=== PATIENT | female | born 1990 | race Hispanic/Latino ===

== ENCOUNTER 2018-10-09 14:02 | Emergency (ER) | payer OTHER ==
--- OUTSIDE RECORDS SUMMARY | 2018-10-09 14:05 | XMS REPORT ---
:1990 [facility] Address [address] [place] [address] Dr. Charlton [address] [place] [id number] Care Team Providers Name Role Phone Unavailable Unavailable Unavailable Problems This patient has no known problems. Allergies, Adverse Reactions, Alerts This patient has no known allergies or adverse reactions. Medications This patient has no known medications.
[2018-10-09 14:58] LABS: Absolute Lymphocytes (CBC) 1.7 K/uL (0.7-4.9); Basophils % 0.3 % (0-1.3); Eosinophils % 1.3 % (0-4.4); Hematocrit 39.2 % (36.0-45.0); Lymphocytes % 22.6 % (15.3-44.8); MPV 8.7 fL (7.6-11.3); Monocytes % 6.1 % (3.3-12.3)
[2018-10-09 15:35] LABS: BUN Blood Urea Nitrogen 9 mg/dL (7-18); Bicarbonate 28 mmol/L (21-32); Glucose Level 117 mg/dL (74-106); HCG, Quantitative 14966 mIU/mL (1-3); Potassium 3.5 mmol/L (3.5-5.1); Sodium Level 139 mmol/L (136-145)
[2018-10-09 15:40] LABS: Urine Blood 2+ (NEG); Urine Glucose NEGATIVE (NEG); Urine Protein NEGATIVE (NEG); Urine Specific Gravity >1.030 (1.005-1.030); Urine pH 5.5 (5.0-7.0)
--- NOTE | 2018-10-09 17:37 | EDPHYS ---
Physician Documentation [facility] Name: Viviane Trinh Age: 27 yrs Sex: Female : 1990 Arrival Date: 10/09/2018 Time: 14:05 Bed 14 Private MD: ED Physician Willie Lomas HPI: 10/09 16:59 This 27 yrs old Female presents to ER via Ambulatory with complaints of jr8 Vaginal Bleeding, + Preg <12wks. 16:59 The patient presents to the emergency department with vaginal bleeding, that is light, jr8 spotting x 5 days with passage of clot today. The estimated gestational age is 10 weeks. course: care: private OB physician, Dr. Velásquez, Ultrasound: the patient had an ultrasound, which was normal. Previous pregnancies: the patient has never been . Associated signs and symptoms: Pertinent positives: cramping. The patient has not experienced similar symptoms in the past. The patient has not recently seen a physician. 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 - Social history:: Smoking status: Patient/guardian denies using tobacco. - Ebola Screening: : No symptoms or risks identified at this time. ROS: 16:59 Constitutional: Negative for fever, chills, and weight loss, Eyes: Negative for injury, jr8 pain, redness, and discharge, ENT: Negative for injury, pain, and discharge, Neck: Negative for injury, pain, and swelling, Cardiovascular: Negative for chest pain, palpitations, and edema, Respiratory: Negative for shortness of breath, cough, wheezing, and pleuritic chest pain, Back: Negative for injury and pain, MS/Extremity: Negative for injury and deformity, Skin: Negative for injury, rash, and discoloration, Neuro: Negative for headache, weakness, numbness, tingling, and seizure. 16:59 Abdomen/GI: Positive for abdominal cramps, Negative for nausea, vomiting, and diarrhea, constipation, rectal pain, rectal bleeding. 16:59 : Positive for vaginal bleeding, Negative for urinary symptoms, vaginal discharge. Exam: 16:59 Constitutional: This is a well developed, well nourished patient who is awake, alert, jr8 and in no acute distress. Head/Face: Normocephalic, atraumatic. Eyes: Pupils equal round and reactive to light, extra-ocular motions intact. Lids and lashes normal. Conjunctiva and sclera are non-icteric and not injected. Cornea within normal limits. Periorbital areas with no swelling, redness, or edema. ENT: Nares patent. No nasal discharge, no septal abnormalities noted. Tympanic membranes are normal and external auditory canals are clear. Oropharynx with no redness, swelling, or masses, exudates, or evidence of obstruction, uvula midline. Mucous membranes moist. Neck: Trachea midline, no thyromegaly or masses palpated, and no cervical lymphadenopathy. Supple, full range of motion without nuchal rigidity, or vertebral point tenderness. No Meningismus. Chest/axilla: Normal chest wall appearance and motion. Nontender with no deformity. No lesions are appreciated. Cardiovascular: Regular rate and rhythm with a normal S1 and S2. No gallops, murmurs, or rubs. Normal PMI, no JVD. No pulse deficits. Respiratory: Lungs have equal breath sounds bilaterally, clear to auscultation and percussion. No rales, rhonchi or wheezes noted. No increased work of breathing, no retractions or nasal flaring. Abdomen/GI: Soft, non-tender, with normal bowel sounds. No distension or tympany. No guarding or rebound. No evidence of tenderness throughout. Back: No spinal tenderness. No costovertebral tenderness. Full range of motion. Skin: Warm, dry with normal turgor. Normal color with no rashes, no lesions, and no evidence of cellulitis. MS/ Extremity: Pulses equal, no cyanosis. Neurovascular intact. Full, normal range of motion. Neuro: Awake and alert, GCS 15, oriented to person, place, time, and situation. Cranial nerves II-XII grossly intact. Motor strength 5/5 in all extremities. Sensory grossly intact. Cerebellar exam normal. Normal gait. Vital Signs: 14:09 BP 134 / 79; Pulse 87; Resp 16 S; Temp 98.1(TE); Pulse Ox 100% on R/A; Weight 60.78 kg aa5 (R); Height 5 ft. 4 in. (162.56 cm) (R); Pain 2/10; 15:21 BP 119 / 74; Pulse 85; Resp 18; Pulse Ox 100% on R/A; hj 16:21 BP 118 / 69; Pulse 78; Resp 18; Pulse Ox 100% on R/A; hj 17:27 BP 115 / 70; Pulse 75; Resp 18; Pulse Ox 100% on R/A; hj 14:09 Body Mass Index 23.00 (60.78 kg, 162.56 cm) aa5 MDM: 14:13 Patient medically screened. jr8 17:17 Data reviewed: vital signs, nurses notes, lab test result(s), radiologic studies, jr8 ultrasound. Data interpreted: Pulse oximetry: on room air is 100 %. Interpretation: normal. Counseling: I had a detailed discussion with the patient and/or guardian regarding: the historical points, exam findings, and any diagnostic results supporting the discharge/admit diagnosis, lab results, radiology results, the need for outpatient follow up, an OB/Gyne specialist, to return to the emergency department if symptoms worsen or persist or if there are any questions or concerns that arise at home. ED course: Discussed with patient that her estimated due date is set at 10 weeks but we are reading on US 5 weeks 6 days. This raises concern for demise. Needs to see OB on Sunday since tomorrow is holiday. If worse to come back in meantime. Patient good with this . 10/09 14:34 Order name: Quantitative Hcg; Complete Time: 16:10/09 14:34 Order name: Abo/rh Typing; Complete Time: 16:10/09 14:34 Order name: Basic Metabolic Panel; Complete Time: 16:10/09 14:34 Order name: CBC with Diff; Complete Time: 16:10/09 14:55 Order name: Urine Dipstick--Ancillary (enter results) ms 10/09 14:55 Order name: Urine --Ancillary (enter results) ms 10/09 14:34 Order name: Urine Test (obtain specimen); Complete Time: 14:54 10/09 14:34 Order name: IV Saline Lock; Complete Time: 14:54 10/09 14:34 Order name: Labs collected and sent; Complete Time: 14:54 10/09 14:34 Order name: NPO; Complete Time: 14:34 10/09 14:34 Order name: Urine Dipstick-Ancillary (obtain specimen); Complete Time: 14:54 10/09 14:59 Order name: US Transvaginal Ob jr8 Administered Medications: No medications were administered Point of Care Testing: Urine : 14:09 hCG Reading: Positive; hj Disposition: 18:29 Co-signature as Attending Physician, Willie Lomas MD. rn Disposition: 10/09/18 17:36 Discharged to Home. Impression: Threatened . - Condition is Stable. - Discharge Instructions: Threatened Miscarriage, Vaginal Bleeding During , First Trimester, Pelvic Rest. - Medication Reconciliation Form, Thank You Letter, Antibiotic Education, Prescription Opioid Use form. - Follow up: Private Physician; When: 48 Hours; Reason: Recheck today's complaints, Continuance of care, Re-evaluation by your physician. - Problem is new. - Symptoms have improved. Signatures: Dispatcher [employer] EDMS Willie Lomas MD MD rn Calderon, Audri, RN RN aa5 Eduardo Ferreira PA PA jr8 Adonis Cedillo RN RN hj Corrections: (The following items were deleted from the chart) 17:53 17:36 10/09/2018 17:36 Discharged to Home. Impression: Threatened . Condition hj is Stable. Forms are Medication Reconciliation Form, Thank You Letter, Antibiotic Education, Prescription Opioid Use. Follow up: Private Physician; When: 48 Hours; Reason: Recheck today's complaints, Continuance of care, Re-evaluation by your physician. Problem is new. Symptoms have improved. jr8
--- NOTE | 2018-10-09 17:37 | ER ---
Nurse's Notes [facility] Name: Viviane Trinh Age: 27 yrs Sex: Female : 1990 Arrival Date: 10/09/2018 Time: 14:05 Bed 14 Private MD: Diagnosis: Threatened Presentation: 10/09 14:08 Presenting complaint: Patient states: "I am about 10 weeks and I noticed a aa5 blood clot and spotting when I went to the restroom about 30 minutes ago". pt reports lower abd cramping. Transition of care: patient was not received from another setting of care. Onset of symptoms was October 2018. Risk Assessment: Do you want to hurt yourself or someone else? Patient reports no desire to harm self or others. Initial Sepsis Screen: Does the patient meet any 2 criteria? No. Patient's initial sepsis screen is negative. Does the patient have a suspected source of infection? No. Patient's initial sepsis screen is negative. Care prior to arrival: None. 14:08 Acuity: DONN 3 aa5 14:08 Method Of Arrival: Ambulatory aa5 Triage Assessment: 14:24 General: Appears in no apparent distress. uncomfortable, Behavior is calm, cooperative, hj appropriate for age. Pain: Complains of pain in abdomen. : Reports vaginal bleeding that is with clots. 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 - Social history:: Smoking status: Patient/guardian denies using tobacco. - Ebola Screening: : No symptoms or risks identified at this time. Screenin:24 Abuse screen: Denies threats or abuse. Denies injuries from another. Nutritional hj screening: No deficits noted. Tuberculosis screening: No symptoms or risk factors identified. Fall Risk None identified. Assessment: 14:46 General: Appears in no apparent distress. uncomfortable, Behavior is calm, cooperative, hj appropriate for age. Pain: Complains of pain in abdomen. Neuro: Level of Consciousness is awake, alert, obeys commands, Oriented to person, place, time, situation, Appropriate for age. Cardiovascular: Capillary refill < 3 seconds Patient's skin is warm and dry. Respiratory: Airway is patent Respiratory effort is even, unlabored, Respiratory pattern is regular, symmetrical. GI: Reports lower abdominal pain, cramping, nausea. : Reports vaginal bleeding that is with clots, light flow. EENT: No signs and/or symptoms were reported regarding the EENT system. Derm: No signs and/or symptoms reported regarding the dermatologic system. 17:52 Obstetrical Assessment: per US results; not available. 17:52 Reassessment: for D/C; instructions given;. Vital Signs: 14:09 BP 134 / 79; Pulse 87; Resp 16 S; Temp 98.1(TE); Pulse Ox 100% on R/A; Weight 60.78 kg aa5 (R); Height 5 ft. 4 in. (162.56 cm) (R); Pain 2/10; 15:21 BP 119 / 74; Pulse 85; Resp 18; Pulse Ox 100% on R/A; hj 16:21 BP 118 / 69; Pulse 78; Resp 18; Pulse Ox 100% on R/A; hj 17:27 BP 115 / 70; Pulse 75; Resp 18; Pulse Ox 100% on R/A; hj 14:09 Body Mass Index 23.00 (60.78 kg, 162.56 cm) [facility] Vitals: 17:51 Heart Tones per US result; not available . ED Course: 14:05 Patient arrived in ED. aa5 14:05 Arm band placed on. aa5 14:09 Triage completed. aa5 14:13 Eduardo Ferreira PA is PHCP. jr8 14:13 Willie Lomas MD is Attending Physician. jr8 14:14 Adonis Cedillo, BILLIE is Primary Nurse. 14:24 Patient has correct armband on for positive identification. Placed in gown. Bed in low hj position. Call light in reach. Side rails up X 1. 14:40 Initial lab(s) drawn, by me, sent to lab. Inserted saline lock: 22 gauge in left hj antecubital area, using aseptic technique. Blood collected. 15:10 Radiology exam delayed due to lab results not completed at this time. (HCG). aa4 16:37 US Transvaginal Ob In Process Unspecified. EDMS 16:39 Repeat lab(s) drawn. by me, sent to lab. jp3 17:51 No provider procedures requiring assistance completed. IV discontinued, intact, hj bleeding controlled, No redness/swelling at site. Pressure dressing applied. Administered Medications: No medications were administered Point of Care Testing: Urine : 14:09 hCG Reading: Positive; hj Outcome: 17:36 Discharge ordered by . anni 17:51 Discharged to home ambulatory, with family. 17:51 Condition: stable 17:51 Discharge instructions given to patient, family, Instructed on discharge instructions, follow up and referral plans. Demonstrated understanding of instructions, follow-up care. 17:53 Patient left the ED. Signatures: Dispatcher [employer] EDGA Sharon Chan aa4 Sheri Mckeon RN RN aa5 Eduardo Ferreira PA PA jr8 Adonis Cedillo, RN RN Ryne Ca jp3 Corrections: (The following items were deleted from the chart) 16:24 16:21 BP 91 / 61; Pulse 65bpm; Resp 18bpm; Pulse Ox 100% RA; hj hj
--- NOTE | 2018-10-09 18:42 | RAD REPORT ---
EXAM DESCRIPTION: US - Transvaginal OB - 10/09/2018 4:40 pm CLINICAL HISTORY: Abd cramping, ;Vaginal bleeding COMPARISON: <Comparisons> FINDINGS: A single gestational sac is seen within the uterus. The shape of the sac is within normal limits for gestational age. Within the sac is a single pole with crown-rump length of 3 mm, cor relating to estimated gestational age of 5 weeks 6 days. Estimated date of delivery is 06/05/2019. Heart rate is 91 BPM. The placenta is not yet developed due to early gestational age. The maternal adnexa and ovaries are within normal limits. Normal Doppler blood flow was demonstrated to both ovaries. IMPRESSION: Single live early intrauterine gestation with estimated gestational age of 5 weeks 6 day s, SAW 06/05/2019. No unusual or unexpected finding.
== END 2018-10-09 17:53 | disposition home or self-care (01) ==
LOC: ER 14:02
DX: O20.0 Threatened abortion (principal); Z3A.01 Less than 8 weeks gestation of pregnancy
CPT/HCPCS: 36415; 76817; 80048; 81003; 81025; 84702; 85025; 86900; 86901; 99284

== ENCOUNTER 2020-05-05 14:00 | Emergency (ER) | payer OTHER ==
--- OUTSIDE RECORDS SUMMARY | 2020-05-05 14:39 | XMS REPORT | Continuity of Care Document ---
:1990 Author Organization [facility] t Address [address] [place] [address] Care Team Providers Name Role Phone Shannan Velásquez MD Attending Clinician Jordon Torres Attending Clinician Doctor Unassigned, Name Attending Clinician Unavailable Problems This patient has no known problems. Allergies, Adverse Reactions, Alerts This patient has no known allergies or adverse reactions. Medications This patient has no known medications. Procedures This patient has no known procedures. Encounters Start End Encounter Admission Attending Care Care Encounter Source Date/Time Date/Time Type Type Clinicians Facility Department ID 2020-05-03 2020-05-03 Telephone Shannan Velásquez [id number] 00:00:00 00:00:00 Brendan [place] [id number] [place] [id number] [id number] [address] 2020-04-28 2020-04-28 Telephone KERI Chinchilla [id number] 00:00:00 00:00:00 Diana Ruvalcaba [employer] W[employer] FENCE ERECTOR [id number] [facility] [id number] MATERNAL [id number] & CHILD [address] [place] [address] 2020-04-27 2020-04-27 Orders Doctor ALEJANDRO [id number] 00:00:00 00:00:00 Only SUZY Jane [id number] [place] [facility] [id number] Results This patient has no known results.
--- OUTSIDE RECORDS SUMMARY | 2020-05-05 14:39 | XMS REPORT | Summary of Care ---
:1990 Author Organization [facility] Address [address] [place] [address] Care Team Providers Name Role Phone Sana Crawford Primary Care Provider Reason for Visit Reason Comments Initial Visit Encounter Details Date Type Department Care Team Description 04/27/2020 Initial [facility] [place], Super vision of high Visit [place] Diana Ruvalcaba SANDOVAL risk , [address]um ([address]) [place], [place] [address] [place], [place] [phone] [id number] Allergies No Known Allergiesdocumented as of this encounter (statuses as of 04/27/2020) Medications Medication Sig Dispensed Refills Start Date End Date Status norgestimate-ethinyl Take 1 tablet by 1 Package 11 11/07/2018 Active estradiol 0.25-35 mouth daily. mg-mcg per tabletIndications: Encounter for BCP ( control pills) initial prescription cephALEXin 500 mg TAKE 1 CAPSULE BY 0 12/04/2019 Active capsule MOUTH EVERY 12 HOURS FOR 5 DAYS documented as of this encounter (statuses as of 04/27/2020) Active Problems Problem Noted Date History of miscarriage 04/27/2020 Supervision of high-risk 04/27/2020 Estimated Date of Delivery Comments Yes 01/03/2021 Based on last menstr ual period of 03/29/2020 (Approximate) documented as of this encounter (statuses as of 04/27/2020) Resolved Problems Problem Noted Date Resolved Date Rhinitis medicamentosa 12/29/2016 12/30/2019 Nonintractable episodic headache, unspecified headache type 12/29/2016 12/30/2019 Well woman exam with routine gynecological exam 08/30/2016 12/30/2019 documented as of this encounter (statuses as of 04/27/2020) Social History Tobacco Use Types Packs/Day Years Used Date Never Smoker Smokeless Tobacco: Never Used Alcohol Use Drinks/Week oz/Week Comments Not Currently social Estimated Date of Delivery Comments Yes 01/03/2021 Based on last menstr ual period of 03/29/2020 (Approximate) Sex Assigned at Date Recorded Not on file COVID-19 Exposure Response Date Recorded In the last month, have you been in contact with No / Unsure 04/27/2020 2:48 PM CAMERA REPAIR TECHNICIAN someone who was confirmed or suspected to have Coronavirus / COVID-19? documented as of this encounter Last Filed Vital Signs Vital Sign Reading Time Taken Comments Blood Pressure 127/85 04/27/2020 2:49 PM CAMERA REPAIR TECHNICIAN Pulse 88 04/27/2020 2:49 PM CAMERA REPAIR TECHNICIAN Temperature 36.8 C (98.3 F) 04/27/2020 2:49 PM CAMERA REPAIR TECHNICIAN Respiratory Rate 16 04/27/2020 2:49 PM CAMERA REPAIR TECHNICIAN Oxygen Saturation - - Inhaled Oxygen Concentration - - Weight 64 kg (141 lb 3 oz) 04/27/2020 2:49 PM CAMERA REPAIR TECHNICIAN Height 162.6 cm (5' 4") 04/27/2020 2:49 PM CAMERA REPAIR TECHNICIAN Body Mass Index 24.23 04/27/2020 2:49 PM CAMERA REPAIR TECHNICIAN documented in this encounter Progress Notes Diana Chinchilla, WHCNP - 04/27/2020 2:30 PM CST Chief complaint: Chief Complaint Patient presents with Initial Visit HPI CC: Initial Visit Viviane Trinh is a 29 year old, , /White female. Patient's last menstrual period was03/29/2020 (approximate). She is 4w1d with an suspected IUP. Her Estimated Date of Delivery: 01/03/21. She is being seen today for her first obstetrical visit. She has no complaints today. OB History Para Term AB Living 2 0 0 0 1 0 SAB TAB Ectopic Multiple Live Births 1 0 0 0 # Outcome Date GA Lbr John/2nd Weight Sex Delivery Anes PTL Lv 2 Current 1 SAB 10/14/18 Histories OB History Para Term AB Living 2 0 0 0 1 0 SAB TAB Ectopic Multiple Live Births 1 0 0 0 # Outcome Date GA Lbr John/2nd Weight Sex Delivery Anes PTL Lv 2 Current 1 SAB 10/14/18 Past Medical History: Diagnosis Date Nonintractable episodic headache, unspecified headache type 12/29/2016 Osteoarthritis Osteoarthritis 2017 Family History Problem Relation Age of Onset Hypertension Mother Heart Father High cholesterol Father Hypertension Father Diabetes Father Arthritis Maternal Aunt Depression Maternal Aunt Diabetes Maternal Aunt Asthma NoFHx defects NoFHx Genetic NoFHx Breast Cancer NoFHx Colon Cancer NoFHx Ovarian Cancer NoFHx Uterine Cancer NoFHx Cancer NoFHx Psychiatry NoFHx Mental retardation NoFHx Neurological NoFHx Osteoporosis NoFHx Family Status Relation Name Status Mo Alive Fa Alive MAunt (Not Specified) NoFHx (Not Specified) Past Surgical History: Procedure Laterality Date LASIK (LASER IN SITU KERATOMILEUSIS) TOOTH EXTRACTION 2013 Social History Socioeconomic History Marital status: Single Spouse name: Not on file Number of children: Not on file Years of education: Not on file Highest education level: Not on file Occupational History Not on file Social Needs Financial resource strain: Not on file Food insecurity Worry: Not on file Inability: Not on file Transportation needs Medical: Not on file Non-medical: Not on file Tobacco Use Smoking status: Never Smoker Smokeless tobacco: Never Used Substance and Sexual Activity Alcohol use: Not Currently Comment: social Drug use: No Sexual activity: Yes Partners: Male control/protection: None Comment: Last intercourse: 04/20/2020 Lifestyle Physical activity Days per week: Not on file Minutes per session: Not on file Stress: Not on file Relationships Social connections Talks on phone: Not on file Gets together: Not on file Attends taoism service: Not on file Active member of club or organization: Not on file Attends meetings of clubs or organizations: Not on file Relationship status: Not on file Intimate partner violence Fear of current or ex partner: Not on file Emotionally abused: Not on file Physically abused: Not on file Forced sexual activity: Not on file Other Topics Concern Not on file Social History Narrative Denies domestic violence or abuse. Lives in house with mom. No pets. Social History Substance and Sexual Activity Sexual Activity Yes Partners: Male control/protection: None Comment: Last intercourse: 04/20/2020 Genetic Screen Autism / Mental Retardation: No Елена Disease: No Congenital Heart Defect: No Cystic Fibrosis: No Down Syndrome: No Familial Dysautonomia: No Hemophilia or other Blood Disorders: No Munday Chorea: No Maternal Metabolic Disorder--specify (eg. Type 1 Diabetes, PKU): No Muscular Dystrophy: No Neural Tube Defect: No Recurrent Loss or a Stillbirth: No Sickle Cell Disease or Trait: No Azeem Sachs: No Teratological Substances (specify type & strength/dose) since LMP: No Thalassemia: No Other Inherited Genetic or Chromosomal Disorder (specify): No No Significant History of Genetic Disorders: No Significant History of Genetic Disorders Labs Labs are pending. and No visits with results within 3 Month(s) from this visit. Latest known visit with results is: Office Visit on 12/30/2019 Component Date Value POCT PREG 12/30/2019 Negative On board controls accept* 12/30/2019 Yes C. trachomatis Nucleic A* 12/30/2019 Negative N. gonorrhoeae Nucleic A* 12/30/2019 Negative Trichomonas vaginalis 12/30/2019 Negative Therese species 12/30/2019 Negative Therese glabrata 12/30/2019 Negative Bacterial Vaginosis 12/30/2019 Negative Radiology No new radiology. Allergies Viviane has No Known Allergies. Medications Viviane has a current medication list which includes the following prescription(s): cephalexin and norgestimate-ethinyl estradiol. Review of Systems Constitutional: Negative. HENT: Negative. Eyes: Negative. Respiratory: Negative. Breasts: Negative. Cardiovascular: Negative. Gastrointestinal: Negative. Genitourinary: Negative. Musculoskeletal: Negative. Skin: Negative. Neurological: Negative. Psychiatric/Behavioral: Negative. Endocrine: Endocrine negative BP 127/85 (BP Location: Right arm, Patient Position: Sitting, BP CUFF SIZE: Adult Medium) | Pulse 88 | Temp 36.8 C (98.3 F) (Oral) | Resp 16 | Ht 5' 4" (1.626 m) | Wt 141 lb 3 oz (64 kg) | LMP 03/29/2020 (Approximate) | BMI 24.23 kg/m Pregravid BMI: 24.19 Physical Exam Vitals reviewed. Constitutional: She is oriented to person, place, and time. She appears well- developed. Her body habitus is normal. Neck: No tenderness and no mass. No thyroid nodules and no thyromegaly palpated. No neck adenopathy. Cardiovascular: Regular rate and rhythm. No gallop, no friction rub and no murmur auscultated. No peripheral edema present. Pulmonary/Chest: Breath sounds clear to auscultation. Normal inspiratory effort. Abdominal: Abdomen is soft. No mass palpated. No tenderness present. There is no hepatosplenomegaly,splenomegaly or hepatomegaly. There is no rigidity. No hernia palpated or inspected. Neuro/Psychiatric: She has a normal mood and affect. She is oriented to person, place, and time. Skin: No lesion, no rash and no ulceration present. Lymphadenopathy: No neck adenopathy present. No axillary adenopathy present. No inguinal adenopathy present. Genitourinary Comments: shayin medstudent present Breast: Right breast exhibits no mass, no nipple discharge and no tenderness. Left breast exhibits no mass, no nipple discharge and no tenderness. Breasts are symmetrical. Normal left breast and normalright breast Rectal: Rectal exam with normal anal tone. No mass, no external hemorrhoid and no internal hemorrhoid palpated or inspected. External genitalia: Normal external genitalia appropriate for age. Normal hair distribution. No labial lesion. Urethral meatus: Normal urethral meatus size, location and no lesion. No prolapse present. Normal urethral meatus Urethra: Normal urethra. No urethral tenderness, no mass and no urethral scarring palpated. Bladder: Bladder has no fullness, no mass palpated and no tenderness. Normal bladder Vagina:Normal vagina. No lesion inspected. Normal estrogen effect. Normal support. No abnormal vaginal discharge found. No lesions in the vagina. Cervix: Normal cervix. No lesion. No tenderness and no discharge present. Closed thick Uterus: Uterus is normal size, normal contour, normal position and non-tender. Normal uterus Adnexa: Right adnexa without tenderness, ovary enlargement or mass. Left adnexa without tenderness, ovary enlargement or mass. Normal left adnexa and normal right adnexa Anus/perineum: Normal perineum and normal anus. PHYSICAL: General Exam: HEENT: Normal Neurological: Normal Abdomen: Normal gravid Extremities: Normal Pelvic Exam: Vulva: Normal Vagina: Normal Cervix: Normal Membrane status: Intact Adnexa: Normal Rectum: Normal Assessment/Plan Return to clinic in 4 weeks. Denies zika virus risk, signs and symptoms such as fever,rash,joint pain, conjunctivitis (red eyes),muscle pain, headaches; outside [place] travel to areas affected by zika, and FOB exposure to zika. Educated on use of mosquito repellent. Supervision of high risk , antepartum (primary encounter diagnosis) Comment: initial visit with labs and physical exam Plan: POCT TEST, POCT URINALYSIS W/O SPECIFIC GRAVITY, CBC WITH DIFF, HEPATITIS B SURFACE ANTIGEN, HIV 1/2 AG-AB WITH REFLEX, POCT URINALYSIS W SPECIFIC GRAVITY, WORKUP, BLOOD BANK, RUBELLA SCREEN (MAZIN) IGG, GALV ONLY - SYPHILIS IGG/IGM, URINE CULTURE, VZV ANTIBODY SCREEN, PAP Smear-Liquid Based, HIGH RISK HPV-THIN PREP, GC & CHLAMYDIA AMPLIFIED ASSAY, Glucose 1 Hour Post Prandial This visit did not involve counseling and coordination that comprised more than 50% of the visit time. VANNESSA Dong 04/27/2020 3:20 PM RA REPAIR TECHNICIAN Mirian Otoole RN - 04/27/2020 2:30 PM CSTPatient is 29 year old female here for current . Patient is . 1) Previous delivery methods N/A 2) Patient is experiencing cramping 3) Patient is not experiencing bleeding. 4) LMP 03/29/2020 5) Last Pap was 08/30/2016 Results Negative 6) PPD candidate? no 7) Patient denies history of physical, emotional, or sexual abuse. Patient states she currently feels safe at home. 8) C/O: 9) Would like flu vaccine? Declines 10) Hx of (+)positive COVID? No New ob packet given and discussed with patient. MIRIAN OTOOLE RN 04/27/2020 2:58 PM RA REPAIR TECHNICIAN documented in this encounter Plan of Treatment Date Type Specialty Care Team Description 05/25/2020 Routine Visit OB Satellites Tevin Chinchilla WHCNP [address] [place], [place] [address] [phone] Name Type Priority Associated Diagnoses Date/Ti me CBC WITH DIFF LAB Routine Supervision of high risk 4:01 PM CAMERA REPAIR TECHNICIAN , antepartum HEPATITIS B SURFACE LAB Routine Supervision of high r isk 04/27/2020 4:01 PM CAMERA REPAIR TECHNICIAN ANTIGEN , antepartum HIV 1/2 AG-AB WITH LAB Routine Supervision of high ri sk 04/27/2020 4:01 PM CAMERA REPAIR TECHNICIAN REFLEX , antepartum RUBELLA SCREEN (MAZIN) LAB Routine Supervision of hig h risk 04/27/2020 4:01 PM CAMERA REPAIR TECHNICIAN IGG , antepartum GALV ONLY - SYPHILIS LAB Routine Supervision of high risk 04/27/2020 4:01 PM CAMERA REPAIR TECHNICIAN IGG/IGM , antepartum URINE CULTURE LAB Routine Supervision of high risk 4:01 PM CAMERA REPAIR TECHNICIAN , antepartum VZV ANTIBODY SCREEN LAB Routine Supervision of high r isk 04/27/2020 4:01 PM CAMERA REPAIR TECHNICIAN , antepartum PAP Smear-Liquid Based LAB Routine Supervision of hig h risk 04/27/2020 4:01 PM CAMERA REPAIR TECHNICIAN , antepartum HIGH RISK HPV-THIN PREP LAB Routine Supervision of hi gh risk 04/27/2020 4:01 PM CAMERA REPAIR TECHNICIAN , antepartum GC & CHLAMYDIA LAB Routine Supervision of high risk 0 04/27/2020 4:01 PM CAMERA REPAIR TECHNICIAN AMPLIFIED ASSAY , antepartum Glucose 1 Hour Post LAB Routine Supervision of high r isk 04/27/2020 4:01 PM CAMERA REPAIR TECHNICIAN Prandial , antepartum Name Type Priority Associated Diagnoses Order S chedule CBC WITH DIFF LAB Routine Supervision of high risk Ex pected: 04/27/2020, , antepartum s: 04/27/2021 HEPATITIS B SURFACE LAB Routine Supervision of high r isk Expected: 04/27/2020, ANTIGEN , antepartum s: 04/27/2021 HIV 1/2 AG-AB WITH LAB Routine Supervision of high ri sk Expected: 04/27/2020, REFLEX , antepartum s: 04/27/2021 POCT URINALYSIS W LAB Routine Supervision of high ris k 20 Occurrences starting SPECIFIC GRAVITY , antepartum until 02/21/2021 WORKUP, BLOOD LAB Routine Supervision of hig h risk Expected: 04/27/2020, BANK , antepartum s: 04/27/2021 RUBELLA SCREEN (MAZIN) LAB Routine Supervision of hig h risk Expected: 04/27/2020, IGG , antepartum s: 04/27/2021 GALV ONLY - SYPHILIS LAB Routine Supervision of high risk Expected: 04/27/2020, IGG/IGM , antepartum s: 04/27/2021 URINE CULTURE LAB Routine Supervision of high risk Ex pected: 04/27/2020, , antepartum s: 04/27/2021 VZV ANTIBODY SCREEN LAB Routine Supervision of high r isk Expected: 04/27/2020, , antepartum s: 04/27/2021 PAP Smear-Liquid Based LAB Routine Supervision of hig h risk Expected: 04/27/2020, , antepartum s: 04/27/2021 HIGH RISK HPV-THIN PREP LAB Routine Supervision of hi gh risk Expected: 04/27/2020, , antepartum s: 04/27/2021 GC & CHLAMYDIA LAB Routine Supervision of high risk E xpected: 04/27/2020, AMPLIFIED ASSAY , antepartum Exp ires: 04/27/2021 Glucose 1 Hour Post LAB Routine Supervision of high r isk Expected: 04/27/2020, Prandial , antepartum s: 04/27/2021 Health Maintenance Due Date Last Done Comments PAP SMEAR 08/31/2019 08/30/2016 INFLUENZA VACCINE (#1) 2020 Postponed from 12/09/2019 (Refused) DTaP,Tdap,and Td Vaccines (1 - 12/29/2020 P ostponed from 2008 Tdap) (Alternative James delines) Depression Screening 12/29/2020 12/30/2019 PNEUMOCOCCAL 0-64 YEARS COMBINED Aged Out No longer eligible based on SERIES patient's age to complete this topic documented as of this encounter Procedures Procedure Name Priority Date/Time Associated Diagnosis Comme nts POCT URINALYSIS W/O Routine 04/27/2020 2:44 Supervision of hi gh Results for this SPECIFIC GRAVITY PM CAMERA REPAIR TECHNICIAN risk , procedur e are in antepartum the results section. POCT TEST Routine 04/27/2020 2:43 [facility] of [facility] Results for this PM CAMERA REPAIR TECHNICIAN risk , procedure ar e in antepartum the results section. documented in this encounter Results POCT URINALYSIS W/O SPECIFIC GRAVITY (04/27/2020 2:44 PM CAMERA REPAIR TECHNICIAN) Pathologist Sig nature POCT PH U 6 5 - 8 mg/dl POCT U LEUK EST 3+ Negative - Negative POCT U NIT Neg Negative - Negative POCT U PROT Trace Negative - Negative POCT U GLU Neg Negative - Negative POCT U KETONE None Negative - Negative POCT U BLD Trace Negative - Negative Specimen Urine - URINE, CLEAN CATCH POCT TEST (04/27/2020 2:43 PM CAMERA REPAIR TECHNICIAN) Pathologist Sig nature POCT PREG Positive On board controls acceptable Yes with C Line POCT PREG LOT # POCT PREG TEST DATE Specimen Urine - URINE, CLEAN CATCH documented in this encounter Visit Diagnoses Diagnosis Supervision of high risk , ante - Primary documented in this encounter Insurance Payer Benefit Plan / Subscriber ID Effective Phone Address T ype Group Dates MEDICAID MEDICAID PENDING 2020-[address] [place] [address] documented as of this encounter Advance Directives Name Relationship Healthcare Agent Communication Relationship Lamonte Neri Health Care Agent
--- OUTSIDE RECORDS SUMMARY | 2020-05-05 14:39 | XMS REPORT | Summary of Care ---
:1990 Author Organization [facility] Address [address] [place] [address] Care Team Providers Name Role Phone Sana Crawford Primary Care Provider Reason for Visit Reason Comments Abnormal Lab Encounter Details Date Type Department Care Team Description [facility]/28[facility]2020 [facility] [address] [facility] [place] [address] [address] [facility] [address] [phone] [place], [place] [address] [phone] Allergies No Known Allergiesdocumented as of this encounter (statuses as of 04/28/2020) Medications Medication Sig Dispensed Refills Start Date End Date Status norgestimate-ethinyl Take 1 tablet by 1 Package 11 11/07/2018 Active estradiol 0.25-35 mg-mcg mouth daily. per tabletIndications: Encounter for BCP ( control pills) initial prescription cephALEXin 500 mg TAKE 1 CAPSULE 0 12/04/2019 Active capsule BY MOUTH EVERY 12 HOURS FOR 5 DAYS blood sugar diagnostic Check glucose 4x 1 Box 5 04/28/2020 Active (TRUE METRIX GLUCOSE daily TEST STRIP) stripIndications: Pregestational diabetes mellitus, modified White class B Blood-Glucose Meter Check blood 1 Each 0 04/28/2020 Active (TRUE METRIX GLUCOSE glucose 4x daily METER) MiscIndications: Pregestational diabetes mellitus, modified White class B lancets 30 gauge Check blood 1 Each 5 04/28/2020 Active MiscIndications: glucose 4x daily Pregestational diabetes mellitus, modified White class B documented as of this encounter (statuses as of 04/28/2020) Active Problems Problem Noted Date Pregestational diabetes mellitus, modified White class B 04/28/2020 Overview: Failed 1hr gtt greater than 200mgdl History of miscarriage 04/27/2020 Supervision of high-risk 04/27/2020 Estimated Date of Delivery Comments Yes 01/03/2021 Based on last menstr ual period of 03/29/2020 (Approximate) documented as of this encounter (statuses as of 04/28/2020) Resolved Problems Problem Noted Date Resolved Date Rhinitis medicamentosa 12/29/2016 12/30/2019 Nonintractable episodic headache, unspecified headache type 12/29/2016 12/30/2019 Well woman exam with routine gynecological exam 08/30/2016 12/30/2019 documented as of this encounter (statuses as of 04/28/2020) Social History Tobacco Use Types Packs/Day Years [...] with No / Unsure 04/27/2020 2:48 PM AIRCRAFT MAINTENANCE TECHNICIAN someone who was confirmed or suspected to have Coronavirus / COVID-19? documented as of this encounter Last Filed Vital Signs Not on filedocumented in this encounter Miscellaneous Notes Telephone Encounter - Elli Barclay LVN - 04/28/2020 1:41 PM CSTViviane Trinh is a 29 year old female Patient informed of results and need for NV. Appointment made and advised to bring supplies to her appointment. elephone Encounter - Diana Chinchilla [facility] - 04/28/2020 1:29 PM CSTPlease notify the patient that she failed her 1hr gtt, she is now consider GDM, please have her comein for diabetic teaching with her supplies once her coverage becomes active. I have ordered and senther supplies to her pharmacy on file. VANNESSA Dong 04/28/2020 1:34 PM RAFT MAINTENANCE TECHNICIAN documented in this encounter Plan of Treatment Date Type Specialty Care Team Description 04/29/2020 [facility] Routine Visit OB Satellites Tevin Chinchilla [facility]NP [address], [place] [address] [phone] Health Maintenance Due Date Last Done Comments HgA1C 1990 CREATININE (SERUM) 11/27/1999 EYE EXAM 11/27/1999 LDL-C 11/27/1999 URINE MICROALBUMIN 11/27/1999 FOOT EXAM 11/27/2007 PAP SMEAR 08/31/2019 08/30/2016 INFLUENZA VACCINE (#1) 2020 Postponed from 12/09/2019 (Refused) DTaP,Tdap,and Td Vaccines (1 - 12/29/2020 P ostponed from 2008 Tdap) (Alternative James delines) Depression Screening 12/29/2020 12/30/2019 PNEUMOCOCCAL 0-64 YEARS COMBINED Aged Out No longer eligible based on SERIES patient's age to complete this topic documented as of this encounter Results Not on filedocumented in this encounter Visit Diagnoses Diagnosis Pregestational diabetes mellitus, modifi ed White class B - Primary Diabetes mellitus of mother, complicatin g , childbirth, or the puerperium, unspecified as to episode of care documented in this encounter Insurance Payer Benefit Plan / Subscriber ID Effective Phone Address T ype Group Dates MEDICAID MEDICAID PENDING 2020-[address] [place] [address] documented as of this encounter Advance Directives Name Relationship Healthcare Agent Communication Relationship Lamonte Juan Friend Health Care Agent
--- OUTSIDE RECORDS SUMMARY | 2020-05-05 14:39 | XMS REPORT | Summary of Care ---
:1990 Author Organization [facility] Address [address] [place] [address] Care Team Providers Name Role Phone Sana Crawford Primary Care Provider Reason for Visit Reason Comments Assessment SPOTTING Encounter Details Date Type Department Care Team Description 05/03/2020 Telephone [facility] Women's Shannan Velásquez MD Assessment; [facility]- [address], [address] [place] [address] [place] [address] [phone] Allergies No Known Allergiesdocumented as of this encounter (statuses as of 05/04/2020) Medications Medication Sig Dispensed Refills Start Date [...] as of this encounter (statuses as of 05/04/2020) Active Problems Problem Noted Date Pregestational diabetes mellitus, modified White class B 04/28/2020 Overview: Failed 1hr gtt greater than 200mgdl History of miscarriage 04/27/2020 Supervision of high-risk 04/27/2020 Estimated Date of Delivery Comments Yes 01/03/2021 Based on last menstr ual period of 03/29/2020 (Approximate) documented as of this encounter (statuses as of 05/04/2020) Resolved Problems Problem Noted Date Resolved Date Rhinitis medicamentosa 12/29/2016 12/30/2019 Nonintractable episodic headache, unspecified headache type 12/29/2016 12/30/2019 Well woman exam with routine gynecological exam 08/30/2016 12/30/2019 documented as of this encounter (statuses as of 05/04/2020) Social History Tobacco Use Types Packs/Day Years [...] with No / Unsure 04/27/2020 2:48 PM ECONOMIC FORECASTER someone who was confirmed or suspected to have Coronavirus / COVID-19? documented as of this encounter Last Filed Vital Signs Not on filedocumented in this encounter Miscellaneous Notes Telephone Encounter - Rosalinda Joseph RN - 05/04/2020 12:31 PM CSTRN returned patient call, name and verified. Patient reports she has light pink spotting for thelast few days and now it is brown. Patient denies any recent intercourse, odors or itching, no new partners. RN advised patient that the spotting is likely remnants from recent pap smear and nothing tyler concerned with. Patient is O+, so no need for rhogam. Patient denies cramping and abdominal pain.ER precautions given for period type bleeding and/or abdominal pain. Patient verbalized understanding and agrees to plan of care. Rosalinda Joseph RN 05/04/2020 12:34 PM OMIC FORECASTER Telephone Encounter - Nicole Santana - 05/04/2020 10:04 AM CSTPt calling back in regards to below encounter. elephone Encounter - Brigida De La Rosa - 05/03/2020 4:16 PM CSTPt is wanting to speak to nurse in regards to her spotting. PSS GRAY said Ashish would address as soon as possible. elephone Encounter - Castro Ayon - 05/03/2020 1:07 PM CSTPatient returning call for nurse.Please advise OMIC FORECASTER Telephone Encounter - Ashish Chappell MA - 05/03/2020 12:26 PM CSTCalled No Answer Left message that we would try her back or she could call the office again. Blood Type O+ elephone Encounter - Cammy Garcia - 05/03/2020 11:59 AM CSTPatient is calling she is 5 weeks and is spotting with brown discharge. She did have a miscarriage in 2019. documented in this encounter Plan of Treatment Date Type Specialty Care Team Description 05/12/2020 Initial Obstetrics & Velásquez, Shannan Cardona MD Visit Gynecology [address] [place] [address] [address]. [address] [place], [place] [address] [phone] Health Maintenance Due Date Last Done Comments HgA1C 1990 CREATININE (SERUM) 11/27/1999 EYE EXAM 11/27/1999 LDL-C 11/27/1999 URINE MICROALBUMIN 11/27/1999 SARS-CoV-2 (COVID-19) Vaccine (1 2005 of 2) FOOT EXAM 11/27/2007 PAP SMEAR 08/31/2019 08/30/2016 INFLUENZA VACCINE (#1) 2020 Postponed from 12/09/2019 (Refused) DTaP,Tdap,and Td Vaccines (1 - 12/29/2020 P ostponed from 2008 Tdap) (Alternative James delines) Depression Screening 12/29/2020 12/30/2019 PNEUMOCOCCAL 0-64 YEARS COMBINED Aged Out No longer eligible based on SERIES patient's age to complete this topic documented as of this encounter Results Not on filedocumented in this encounter Insurance Payer Benefit Plan / Subscriber ID Effective Dates Phone Addre ss Type Group TMHP MEDICAID OF [id number] 2020-Presen [phone] [address] Medicaid [place] [id number] [place] [id number] documented as of this encounter Advance Directives Name Relationship Healthcare Agent Communication Relationship Lamonte Neri Health Care Agent
--- OUTSIDE RECORDS SUMMARY | 2020-05-05 14:39 | XMS REPORT | Summary of Care ---
:1990 Author Organization [facility] Address [address] [place] [address] Care Team Providers Name Role Phone Sana Crawford Primary Care Provider Reason for Visit Reason Comments Abnormal Lab Encounter Details Date Type Department Care Team Description 04/28/2020 [facility], Abnormal Lab [address] [facility] [place] [address] [facility] [address] [address] [phone] [place], [place] [address] [phone] Allergies No Known Allergiesdocumented as of this [...] with No / Unsure 04/27/2020 2:48 PM SUPERVISOR MENDING someone who was confirmed or suspected to have Coronavirus / COVID-19? documented as of this encounter Last Filed Vital Signs Not on filedocumented in this encounter Miscellaneous Notes Telephone Encounter - Diana Chinchilla WHCNP - 04/28/2020 1:29 PM SUPERVISOR MENDING Please notify the patient that she failed her 1hr gtt, she is now consider GDM, please have her comein for diabetic teaching with her supplies once her coverage becomes active. I have ordered and senther supplies to her pharmacy on file. VANNESSA Dong 04/28/2020 1:34 PM RVISOR MENDING documented in this encounter Plan of Treatment Date Type Specialty Care Team Description 05/25/2020 Routine Visit OB Satellites Tevin Chinchilla, CNP [address] [place], [place] [address] [phone] Health Maintenance Due Date Last Done Comments [...] T ype Group Dates MEDICAID MEDICAID PENDING 2020-[address] [place] [address] documented as of this encounter Advance Directives Name Relationship Healthcare Agent Communication Relationship Lamonte Neri Health Care Agent
--- OUTSIDE RECORDS SUMMARY | 2020-05-05 14:39 | XMS REPORT | Summary of Care ---
:1990 Author Organization [facility] Address [address] [place] [address] Care Team Providers Name Role Phone Sana Crawford Primary Care Provider Reason for Visit Reason Comments Initial Visit Encounter Details Date Type Department Care Team Description 04/27/2020 Initial [facility]- [place], Super vision of high Visit [place] Diana Ruvalcaba SANDOVAL risk , [address] ([address]) [place], [place] [address] [place], [place] [phone] Allergies No Known Allergiesdocumented as of [...] with No / Unsure 04/27/2020 2:48 PM INSTRUCTOR INDUSTRIAL DESIGN someone who was confirmed or suspected to have Coronavirus / COVID-19? documented as of this encounter Last Filed Vital Signs Vital Sign Reading Time Taken Comments Blood Pressure 127/85 04/27/2020 2:49 PM INSTRUCTOR INDUSTRIAL DESIGN Pulse 88 04/27/2020 2:49 PM INSTRUCTOR INDUSTRIAL DESIGN Temperature 36.8 C (98.3 F) 04/27/2020 2:49 PM INSTRUCTOR INDUSTRIAL DESIGN Respiratory Rate 16 04/27/2020 2:49 PM INSTRUCTOR INDUSTRIAL DESIGN Oxygen Saturation - - Inhaled Oxygen Concentration - - Weight 64 kg (141 lb 3 oz) 04/27/2020 2:49 PM INSTRUCTOR INDUSTRIAL DESIGN Height 162.6 cm (5' 4") 04/27/2020 2:49 PM INSTRUCTOR INDUSTRIAL DESIGN Body Mass Index 24.23 04/27/2020 2:49 PM INSTRUCTOR INDUSTRIAL DESIGN documented in this encounter Progress Notes Diana [...] file Gets together: Not on file Attends yazidism service: Not on file Active member of [...] No Hemophilia or other Blood Disorders: No [place] Chorea: No Maternal Metabolic Disorder--specify (eg. Type [...] visit time. VANNESSA Dong 04/27/2020 3:20 PM RUCTOR INDUSTRIAL DESIGN Mirian Otoole RN - 04/27/2020 2:30 PM [...] patient. MIRIAN OTOOLE RN 04/27/2020 2:58 PM RUCTOR INDUSTRIAL DESIGN documented in this encounter Plan of Treatment Date Type Specialty Care Team Description 05/25/2020 Routine Visit OB Satellites Tevin Chinchilla WHCNP [address] [place], [place] [address] [phone] Name Type Priority Associated Diagnoses Date/Ti me CBC WITH DIFF LAB Routine Supervision of high risk 4:01 PM INSTRUCTOR INDUSTRIAL DESIGN , antepartum HEPATITIS B SURFACE LAB Routine Supervision of high r isk 04/27/2020 4:01 PM INSTRUCTOR INDUSTRIAL DESIGN ANTIGEN , antepartum HIV 1/2 AG-AB WITH LAB Routine Supervision of high ri sk 04/27/2020 4:01 PM INSTRUCTOR INDUSTRIAL DESIGN REFLEX , antepartum RUBELLA SCREEN (MAZIN) LAB Routine Supervision of hig h risk 04/27/2020 4:01 PM INSTRUCTOR INDUSTRIAL DESIGN IGG , antepartum GALV ONLY - SYPHILIS LAB Routine Supervision of high risk 04/27/2020 4:01 PM INSTRUCTOR INDUSTRIAL DESIGN IGG/IGM , antepartum URINE CULTURE LAB Routine Supervision of high risk 4:01 PM INSTRUCTOR INDUSTRIAL DESIGN , antepartum VZV ANTIBODY SCREEN LAB Routine Supervision of high r isk 04/27/2020 4:01 PM INSTRUCTOR INDUSTRIAL DESIGN , antepartum PAP Smear-Liquid Based LAB Routine Supervision of hig h risk 04/27/2020 4:01 PM INSTRUCTOR INDUSTRIAL DESIGN , antepartum HIGH RISK HPV-THIN PREP LAB Routine Supervision of hi gh risk 04/27/2020 4:01 PM INSTRUCTOR INDUSTRIAL DESIGN , antepartum GC & CHLAMYDIA LAB Routine Supervision of high risk 0 04/27/2020 4:01 PM INSTRUCTOR INDUSTRIAL DESIGN AMPLIFIED ASSAY , antepartum Glucose 1 Hour Post LAB Routine Supervision of high r isk 04/27/2020 4:01 PM INSTRUCTOR INDUSTRIAL DESIGN Prandial , antepartum Name Type Priority Associated [...] gh Results for this SPECIFIC GRAVITY PM INSTRUCTOR INDUSTRIAL DESIGN risk , procedur e are in antepartum the results section. POCT TEST Routine 04/27/2020 2:43 Supervision of [facility] Results for this PM INSTRUCTOR INDUSTRIAL DESIGN risk , procedure ar e in antepartum the results section. documented in this encounter Results POCT URINALYSIS W/O SPECIFIC GRAVITY (04/27/2020 2:44 PM INSTRUCTOR INDUSTRIAL DESIGN) Pathologist Sig nature POCT PH U 6 [...] CLEAN CATCH POCT TEST (04/27/2020 2:43 PM INSTRUCTOR INDUSTRIAL DESIGN) Pathologist Sig nature POCT PREG Positive On [...] T ype Group Dates MEDICAID MEDICAID PENDING 2020-[address] [place] [address] documented as of this encounter Advance Directives Name Relationship Healthcare Agent Communication Relationship Lamonte Neri Health Care Agent
[2020-05-05 15:11] LABS: Urine Blood TRACE (NEG); Urine Glucose NEGATIVE (NEG); Urine Protein NEGATIVE (NEG); Urine pH 6.5 (5.0-7.0)
[2020-05-05 17:26] LABS: Urine Amorphous Sediment 1+ /HPF (NONE SEEN); Urine Bacteria <20 /HPF (<20); Urine RBC <5 /HPF (NONE SEEN)
[2020-05-05] MEDS ORDERED: NA CHLORIDE 0.9% 1,000 ML ONE (18:46)
[2020-05-05 19:07] LABS: Absolute Lymphocytes (CBC) 1.7 K/uL (0.7-4.9); Basophils % 0.5 % (0-1.3); Hematocrit 41.3 % (36.0-45.0); Lymphocytes % 25.7 % (15.3-44.8); MPV 8.9 fL (7.6-11.3); RBC Red Blood Cell Count 4.61 M/uL (3.86-4.86)
[2020-05-05] MEDS ORDERED: MECLIZINE HCL 12.5 MG TAB ONE (19:18)
[2020-05-05] MEDS ORDERED: ONDANSETRON 4 MG/2 ML VIAL ONE (19:18)
--- NOTE | 2020-05-05 19:18 | RAD REPORT ---
EXAM DESCRIPTION: CT - Head Brain Wo Cont - 05/05/2020 6:59 pm CLINICAL HISTORY: Dizziness COMPARISON: None TECHNIQUE: Computed axial tomography of the head was obtained. IV contrast was not requested. All CT scans are performed using dose optimization technique as appropriate and may include automated exposure control or mA/KV adjustment according to patient size. FINDINGS: An intracranial bleed is not seen . The ventricles are normal in caliber. No extra-axial fluid collection is noted. Fluid within the sinuses/ mastoids is not seen. IMPRESSION: No acute intracranial abnormality is seen. If patient's symptoms persist MRI of the bra in would be recommended.
[2020-05-05 19:32] LABS: BUN Blood Urea Nitrogen 6 mg/dL (7-18); Bicarbonate 28 mmol/L (21-32); Glucose Level 84 mg/dL (74-106); HCG, Quantitative 10495 mIU/mL (1-3); Sodium Level 138 mmol/L (136-145)
--- NOTE | 2020-05-05 20:08 | RAD REPORT ---
EXAM DESCRIPTION: US - 1St Trimest Single 1St Fetus - 05/05/2020 7:42 pm CLINICAL HISTORY: with vaginal bleeding COMPARISON: None. FINDINGS: The uterus measures 8 x 4 x 6 centimeters. A sac is present within the endometrium measur ing 6 millimeters. A yolk sac is seen. A pole is not demonstrated. 6 millimeter intramural fibroid Right and left ovary appear normal. 1.9 centimeter left ovarian cyst. The right and left adnexa unrem arkable No significant free fluid is seen. IMPRESSION: Intrauterine with an estimated gestational age 5 weeks 3 days. pole was not visualized which simply may be secondary to the early gestation. It is recommended that the patie nt have a followup endovaginal sonogram in 1 week for re-evaluation
--- NOTE | 2020-05-05 20:34 | EDPHYS ---
Physician Documentation [facility] Name: Viviane Trinh Age: 29 yrs Sex: Female : 1990 Arrival Date: 05/05/2020 Time: 14:06 Bed 24 Private MD: ED Physician Patricia Rice HPI: 05/05 14:51 This 29 yrs old Female presents to ER via Ambulatory with complaints of jmm Dizziness. 14:51 The patient presents with sense of spinning. Onset: The symptoms/episode began/occurred jmm acutely, today. Modifying factors: The symptoms are alleviated by holding head still, the symptoms are aggravated by movement of head. Associated signs and symptoms: Pertinent negatives: abdominal pain, head injury, shortness of breath, vomiting. This is a 29 year old female with no chronic medical conditions that presents to the ED with complaints of dizziness worse with change in position. Patient has had previous episodes which were similar most recently two months prior. Patient also complains in vaginal bleeding described as spotting beginning this past Sunday. Denies pain, denies dysuria. . 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 - Social history:: Smoking status: Patient denies any tobacco usage or history of. ROS: 14:51 Constitutional: Negative for fever, chills, and weight loss, Cardiovascular: Negative jmm for chest pain, palpitations, and edema, Respiratory: Negative for shortness of breath, cough, wheezing, and pleuritic chest pain. 14:51 : Positive for vaginal bleeding. 14:51 Neuro: Positive for dizziness. 14:51 All other systems are negative. Exam: 14:51 Constitutional: This is a well developed, well nourished patient who is awake, alert, jmm and in no acute distress. Head/Face: atraumatic. Eyes: EOMI, no conjunctival erythema appreciated ENT: Moist Mucus Membranes Neck: Trachea midline, Supple Chest/axilla: Normal chest wall appearance and motion. Cardiovascular: Regular rate and rhythm. No edema appreciated Respiratory: Normal respirations, no respiratory distress appreciated Abdomen/GI: Non distended, soft Back: Normal ROM Skin: General appearance color normal MS/ Extremity: Moves all extremities, no obvious deformities appreciated, no edema noted to the lower extremities Neuro: Awake and alert, normal gait Psych: Behavior is normal, Mood is normal, Patient is cooperative and pleasant 14:51 Neuro: Orientation: is normal, Mentation: is normal, Memory: is normal, Cerebellar [facility] function: normal finger to nose testing, Motor: is normal. Vital Signs: 14:33 BP 121 / 91; Pulse 95; Resp 16 S; Temp 98.4(TE); Pulse Ox 100% on R/A; Weight 62.6 kg aa5 (R); Height 5 ft. 4 in. (162.56 cm) (R); Pain 0/10; 17:54 BP 124 / 81; Pulse 87; Resp 18; Pulse Ox 100% on R/A; em1 14:33 Body Mass Index 23.69 (62.60 kg, 162.56 cm) aa5 MDM: 18:15 Patient medically screened. [facility] 20:31 Data reviewed: vital signs, nurses notes. Counseling: I had a detailed discussion with tej the patient and/or guardian regarding: the historical points, exam findings, and any diagnostic results supporting the discharge/admit diagnosis, the need for outpatient follow up, to return to the emergency department if symptoms worsen or persist or if there are any questions or concerns that arise at home. ED course: Patient is alert and non toxic in appearance in the ED. No signs of resp distress. Dizziness resolved. Most likely peripheral vertigo. Will follow up with pcp and is otherwise given strict return precautions. Patient understood and agrees with the plan of care. . 05/05 14:51 Order name: Urine Microscopic Only [facility] 05/05 14:51 Order name: Urine Microscopic Only; Complete Time: 18:16 [facility] 05/05 14:59 Order name: Urine Dipstick--Ancillary (enter results); Complete Time: 18:16 05/05 14:59 Order name: Urine --Ancillary (enter results); Complete Time: 18:16 05/05 17:27 Order name: Urine Culture [facility] 05/05 18:16 Order name: Quantitative Hcg [facility] 05/05 18:16 Order name: Abo/rh Typing [facility] 05/05 18:16 Order name: Basic Metabolic Panel [facility] 05/05 18:16 Order name: CBC with Diff; Complete Time: 19:21 [facility] 05/05 18:17 Order name: HCG, Quantitative; Complete Time: 19:59 [facility] 05/05 18:17 Order name: ABO/RH typing; Complete Time: 19:24 [facility] 05/05 18:17 Order name: Basic Metabolic Panel; Complete Time: 19:59 [facility] 05/05 18:17 Order name: US 1st Trimest Single 1st Fetus [facility] 05/05 18:17 Order name: CT Head Brain wo Cont [facility] 05/05 14:51 Order name: Urine Dipstick-Ancillary (obtain specimen); Complete Time: 19:12 [facility] 05/05 14:51 Order name: Urine Test (obtain specimen); Complete Time: 19:12 [facility] 05/05 18:16 Order name: IV Saline Lock; Complete Time: 19:00 [facility] 05/05 18:16 Order name: Labs collected and sent; Complete Time: 19:00 [facility] 05/05 18:16 Order name: NPO; Complete Time: 19:00 [facility] 05/05 18:17 Order name: EKG - Nurse/Tech; Complete Time: 18:36 [facility] 05/05 19:19 Order name: CT; Complete Time: 19:21 [facility] 05/05 20:09 Order name: US; Complete Time: 20:18 EDMS Administered Medications: 19:11 Drug: Meclizine 50 mg Route: PO; iw 19:12 Drug: NS 0.9% 1000 ml Route: IV; Rate: 1 bolus; Site: left antecubital; iw 19:12 Drug: Zofran (Ondansetron) 4 mg Route: IVP; Site: left antecubital; iw Disposition: 05/05/20 20:33 Discharged to Home. Impression: Urinary tract infection, site not specified, Vertigo, Threatened . - Condition is Stable. - Discharge Instructions: Benign Positional Vertigo, and Urinary Tract Infection. - Prescriptions for Cephalexin 500 mg Oral Capsule - take 1 capsule by ORAL route every 8 hours for 10 days; 30 capsule. Meclizine 25 mg Oral Tablet - take 1 tablet by ORAL route every 8 hours As needed; 30 tablet. - Medication Reconciliation Form, Thank You Letter, Antibiotic Education, Prescription Opioid Use form. - Follow up: Private Physician; When: 2 - 3 days; Reason: Recheck today's complaints, Continuance of care, Re-evaluation by your physician. Addendum: 05/08/2020 07:10 Co-signature as Attending Physician, Patricia Rice MD. m a2 Signatures: Dispatcher [employer] EDMS Akshat Hernandez PA PA jmm Williams, Irene, RN RN iw Sheri Mckeon RN RN aa5 Patricia Rice MD MD ma2 Corrections: (The following items were deleted from the chart) 05/05 21:01 20:33 05/05/2020 20:33 Discharged to Home. Impression: Urinary tract infection, site iw not specified; Vertigo; Threatened . Condition is Stable. Forms are Medication Reconciliation Form, Thank You Letter, Antibiotic Education, Prescription Opioid Use. Follow up: Private Physician; When: 2 - 3 days; Reason: Recheck today's complaints, Continuance of care, Re-evaluation by your physician. tej
--- NOTE | 2020-05-05 20:34 | ER ---
Nurse's Notes [facility] Name: Viviane Trinh Age: 29 yrs Sex: Female : 1990 Arrival Date: 05/05/2020 Time: 14:06 Bed 24 Private MD: Diagnosis: Urinary tract infection, site not specified;Vertigo;Threatened Presentation: 05/05 14:33 Chief complaint: Patient states: nausea, dizziness that began today. Pt reports being aa5 approximately 5 weeks . Pt reports vaginal spotting since Sunday. Pt denies any urinary symptoms. 14:33 Method Of Arrival: Ambulatory aa5 14:33 Coronavirus screen: Client denies travel out of the [place] in the last 14 days. At this aa5 time, the client does not indicate any symptoms associated with coronavirus-19. Ebola Screen: Patient negative for fever greater than or equal to 101.5 degrees Fahrenheit, and additional compatible Ebola Virus Disease symptoms. Initial Sepsis Screen: Does the patient meet any 2 criteria? No. Patient's initial sepsis screen is negative. Does the patient have a suspected source of infection? No. Patient's initial sepsis screen is negative. Risk Assessment: Do you want to hurt yourself or someone else? Patient reports no desire to harm self or others. Onset of symptoms was April 2020. 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 - Social history:: Smoking status: Patient denies any tobacco usage or history of. Screenin:14 Abuse screen: Denies threats or abuse. Denies injuries from another. Nutritional iw screening: No deficits noted. Tuberculosis screening: No symptoms or risk factors identified. Fall Risk None identified. Assessment: 18:45 General: Appears in no apparent distress. Behavior is calm, cooperative. Pain: iw Complains of pain in suprapubic area. Neuro: Level of Consciousness is awake, alert, obeys commands, Oriented to person, place, time, situation, Moves all extremities. Respiratory: Respiratory effort is even, unlabored. : Reports vaginal bleeding that is with clots. Derm: Skin is intact, is healthy with good turgor. Musculoskeletal: Range of motion: intact in all extremities. 19:42 Reassessment: Patient appears in no apparent distress at this time. Patient and/or iw family updated on plan of care and expected duration. Pain level reassessed. Patient is alert, oriented x 3, equal unlabored respirations, skin warm/dry/pink. Vital Signs: 14:33 BP 121 / 91; Pulse 95; Resp 16 S; Temp 98.4(TE); Pulse Ox 100% on R/A; Weight 62.6 kg aa5 (R); Height 5 ft. 4 in. (162.56 cm) (R); Pain 0/10; 17:54 BP 124 / 81; Pulse 87; Resp 18; Pulse Ox 100% on R/A; em1 14:33 Body Mass Index 23.69 (62.60 kg, 162.56 cm) aa5 ED Course: 14:06 Patient arrived in ED. am4 14:34 Arm band placed on. aa5 14:35 Triage completed. aa5 16:53 Akshat Hernandez PA is PHCP. [facility] 16:54 Patricia Rice MD is Attending Physician. [facility] 18:17 Dana Crawford, RN is Primary Nurse. iw 18:36 EKG done, by ED staff, reviewed by Akshat MORALES. em1 18:50 Initial lab(s) drawn, by ma, sent to lab. Inserted saline lock: 20 gauge in left iw antecubital area, using aseptic technique. Administered Medications: 19:11 Drug: Meclizine 50 mg Route: PO; iw 19:12 Drug: NS 0.9% 1000 ml Route: IV; Rate: 1 bolus; Site: left antecubital; iw 19:12 Drug: Zofran (Ondansetron) 4 mg Route: IVP; Site: left antecubital; iw Outcome: 20:33 Discharge ordered by . [facility] 21:01 Patient left the ED. iw Signatures: Akshat Hernandez PA PA jmm Williams, Irene, RN BILLIE iw Avery Morel em1 Sheri Mckeon RN RN aa5 Shelby Morel am4 Corrections: (The following items were deleted from the chart) 14:35 14:33 Chief complaint: Patient states: nausea, dizziness that began today. Pt reports aa5 being approximately 5 weeks . Pt reports vaginal spotting since Sunday. aa5
[2020-05-05 21:36] VITALS: TEMP 98.4; O2SAT 100
[2020-05-05 21:37] VITALS: BP 124/81
--- NOTE | 2020-05-07 11:06 | EKG ---
Test Date: 2020-05-05 Test Time: 18:26:11 Sole Molder: JENNA MEASUREMENT RESULTS: Intervals: Rate: 86 NC: 114 QRSD: 78 QT: 360 QTc: 430 [place]: P: 47 NC: 114 QRS: 72 T: 49 INTERPRETIVE STATEMENTS: Normal sinus rhythm Normal ECG No previous ECG available for comparison Electronically Signed On 05-07-20 11:05:11 VP CUSTOMER SERVICE by Kj Cavazos
== END 2020-05-05 21:01 | disposition home or self-care (01) ==
LOC: ER 14:00
DX: O20.0 Threatened abortion (principal); Z3A.01 Less than 8 weeks gestation of pregnancy; O23.41 Unspecified infection of urinary tract in pregnancy, first trimester; R42 Dizziness and giddiness
CPT/HCPCS: 87088; 85025; 87086; 80048; 36415; 86900; 81025; 86901; 84702; 70450; 76801; J7030; J2405; 81003; 81015; 93005; 96374; 99284